=== PATIENT | male | born 1965 | race Caucasian/White ===

== ENCOUNTER 2016-11-12 16:35 | Emergency (ER) | payer BC ==
[2016-11-12 17:04] VITALS: BP 116/70
--- NOTE | 2016-11-12 17:08 | UC ---
FLU HPI - HPI Summary HPI Summary: Pt presents with c/o generalized malaise, fever, chills, sore throat ear ache and nasal congestion and cough - History of Current Complaint Chief Complaint: UCRespiratory Stated Complaint: FEVER, SORE THROAT, ACHES, AND SINUS CONGESTION Time Seen by Provider: 11/12/16 16:57 Hx Obtained From: Patient Onset/Duration: Sudden Onset, Lasting Days - 2 Severity Currently: Mild Severity Initially: Mild Associated Signs & Symptoms: Positive: Fever, Myalgia, Cough, Sore Throat, Nasal Congestion - Allergy/Home Medications Allergies/Adverse Reactions: Allergies Allergy/AdvReac Type Severity Reaction Status Date / Time No Known Allergies Allergy Verified 11/12/16 17:03 Home Medications: Home Medications Plant Sterols and Stanols [Cholestoff] 11/12/16 [History] Zolpidem TAB* [Ambien*] 1 11/12/16 [History] PMH/Surg Hx/FS Hx/Imm Hx Previously Healthy: Yes Endocrine History Of: Denies: Diabetes, Thyroid Disease Cardiovascular History Of: Denies: Cardiac Disorders, Hypertension, Pacemaker/ICD Respiratory History Of: Denies: COPD, Asthma GI/ History Of: Denies: Ulcer, Renal Disease - Surgical History Surgical History: Yes Surgery Procedure, Year, and Place: WISDOM TEETH. VASECTOMY 2003 - Family History Known Family History: Positive: Other - positive [facility] [place] - Social History Lives: With Family Alcohol Use: None Substance Use Type: None Smoking Status (MU): Current Some Day Smoker Review of Systems Constitutional: Fever, Chills, Fatigue Skin: Negative Eyes: Negative ENT: Sore Throat, Ear Ache, Other - nasal congestion Respiratory: Cough Cardiovascular: Negative Gastrointestinal: Negative Genitourinary: Negative Motor: Negative Neurovascular: Negative Musculoskeletal: Myalgia Neurological: Negative Psychological: Negative All Other Systems Reviewed And Are Negative: Yes Physical Exam Triage Information Reviewed: Yes Appearance: Ill-Appearing - mild Vital Signs: Initial Vital Signs Temp 99.0 F 11/12/16 16:57 Pulse 80 11/12/16 16:57 Resp 18 11/12/16 16:57 BP 116/70 11/12/16 16:57 Pulse Ox 99 11/12/16 16:57 Vital Signs Reviewed: Yes Eye Exam: Normal ENT Exam: Other ENT: Positive: Nasal congestion Neck exam: Normal Respiratory Exam: Normal Cardiovascular Exam: Normal Musculoskeletal Exam: Normal Neurological Exam: Normal Psychological Exam: Normal Skin Exam: Normal Flu Course/Dx - Differential Dx/Diagnosis Differential Diagnosis/HQI/PQRI: Influenza, Upper Respiratory Infection Provider Diagnoses: INfluenza B Discharge - Discharge Plan Condition: Stable Disposition: HOME Patient Education Materials: Influenza (ED) [place] [facility] [Outside] Additional Instructions: Please follow up with your PCP or return to clinic. If you do not have a PCP I have provided you with a list [place] [facility] [place]
== END 2016-11-12 18:05 | disposition home or self-care (01) ==
LOC: UCEAST 16:35
DX: J11.1 Influenza due to unidentified influenza virus with other respiratory manifestations (principal); F17.200 Nicotine dependence, unspecified, uncomplicated
CPT/HCPCS: 87502; 99211; G0463